=== PATIENT | male | born 1980 | race Hispanic/Latino ===

== ENCOUNTER 2025-01-24 08:50 | Day surgery (SDC) | payer OTHER ==
[~2025-01-24] VITALS: Ht 175.3 cm; Wt 120.7 kg
[~2025-01-24 08:50] MED LIST: AMLODIPINE BESYL5 MG PO; KEPPRA250 M1 PO
[2025-01-24] MEDS ORDERED: FAMOTIDINE 10MG/ML 2ML SDV IV ONE (08:54)
[2025-01-24] MEDS ORDERED: SODIUM CHLORIDE 0.9% 100 ML IV ONE (08:54)
[2025-01-24] MEDS ORDERED: SODIUM CHLORIDE 0.9% 1,000 ML IV ONE (08:54)
[2025-01-24] MEDS ORDERED: ceFAZolin Sodium 2 GM/VIAL SDV ONE (08:54)
[2025-01-24] MEDS ORDERED: LIDOcaine HCl 1% (Local Anesth.) 20 ML VIAL ONE (09:15)
[2025-01-24] MEDS ORDERED: SODIUM CHLORIDE 1,000 ML BTL IR ONE (09:16)
[2025-01-24] MEDS ORDERED: STERILE WATER FOR IRRIGATION 500 ML BTL IR ONE (09:16)
[2025-01-24] MEDS ORDERED: PERCOCET 5/325M1 TAB PO (11:01)
[2025-01-24 12:46] VITALS: BP 111/61
[2025-01-24] MEDS ORDERED: KETOROLAC TROMETHAMINE 30 MG/ML SDV IV ONE (16:46)
[2025-01-24] MEDS ORDERED: PROPOFOL 200 MG/20 ML VIAL IV ONE (16:46)
[2025-01-24] MEDS ORDERED: ROCURONIUM BROMIDE 10 MG/ML 5 ML VIAL IV ONE (16:46)
[2025-01-24] MEDS ORDERED: SODIUM CHLORIDE 0.9% 1,000 ML BAG IV ONE (16:46)
[2025-01-24] MEDS ORDERED: LIDOCAINE HCL 2% 2ML SDV IV ONE (16:46)
[2025-01-24] MEDS ORDERED: ONDANSETRON HCl 4 MG/2 ML SDV IV ONE (16:46)
[2025-01-24] MEDS ORDERED: ACETAMINOPHEN 1,000 MG/100 ML VIAL IV ONE (16:46)
[2025-01-24] MEDS ORDERED: SUGAMMADEX SODIUM 200 MG/2 ML SDV IV ONE (16:46)
[2025-01-24] MEDS ORDERED: SUCCINYLCHOLINE CHLORIDE 20 MG/ML 10ML VIAL IV ONE (16:46)
== END 2025-01-24 10:05 | disposition home or self-care (01) | DRG 355 ==
LOC: ORM 08:50
PROVIDERS: ATTEND Surgery
PROC: 0WUF0JZ Supplement Abdominal Wall with Synthetic Substitute, Open Approach (ICD-10-PCS; principal; 2025-01-24)
DX: K42.0 Umbilical hernia with obstruction, without gangrene (principal); I10 Essential (primary) hypertension
CPT/HCPCS: J0131; J0690; J1100; J2405